=== PATIENT | female | born 1955 | race Caucasian/White ===

== ENCOUNTER → 2024-08-06 14:38 | Outpatient (REF) | payer MEDICARE, OTHER, SELFPAY ==
[2024-08-06 16:01] LABS: ALT (SGPT) 57 U/L (0-35); AST (SGOT) 64 U/L (14-36); Alkaline Phosphatase 110 U/L (38-126); Blood Urea Nitrogen 8 mg/dl (7-17); Carbon Dioxide 23 mmol/L (22-30); Chloride 102 mmol/L (98-107); Creatine Phosphokinase 53 U/L (30-135); Glucose 95 mg/dl (70-99); Iron 182 ug/dl (37-170); Sodium 139 mmol/L (135-145); Total Bilirubin 1.1 mg/dl (0.2-1.3); Total Protein 7.3 g/dl (6.3-8.2); eGFR > 60.00
[2024-08-06 16:09] LABS: % Basophils 0.6 % (0-2); % Eosinophils 0.4 % (0-6); % Immature Granulocytes 0.4 % (0-0.5); % Monocytes 6.5 % (1.7-9.3); % Neutrophils 70.1 % (42.2-75.2); Absolute Basophils 0.1 10^3/uL (0-0.2); Absolute Lymphocytes 1.9 10^3/uL (1.2-3.4); Absolute Monocytes 0.6 10^3/uL (0.1-0.6); Absolute Neutrophils 5.9 10^3/uL (1.4-6.5); Hematocrit 45.7 % (37.0-47.0); Hemoglobin 16.2 g/dL (12.0-16.0); Mean Corp Hgb Conc. 35.4 g/dL (33.0-37.0); Mean Corpuscular Hgb 36.9 pg (27.0-31.0); Mean Corpuscular Volume 104.1 fL (81.0-99.0); Mean Platelet Volume 10.4 fL (7.4-10.4); Nucleated Red Blood Cells % 0 %; Platelet Count 211 10^3/uL (130-400); Red Blood Cell Count 4.39 10^6/uL (4.20-5.40); Red Cell Dist. Width 14.6 % (11.5-14.5); White Blood Cell Count 8.5 10^3/uL (4.8-10.8)
[2024-08-06 16:10] LABS: Percent Saturation 65 % (20-50); Total Iron Binding Capacity 280 ug/dl (265-497)
[2024-08-06 16:33] LABS: TSH Reflex To Free T4 1.24 uIU/ml (0.47-4.68)
[2024-08-06 18:30] LABS: Erythrocyte Sed Rate 10 mm/hour (0-20)
[2024-08-08 15:02] LABS: Lyme Antibody Screen, EIA Negative (Negative)
== END ==
LOC: REG 14:38
PROVIDERS: ATTENDING PHYSICIAN Hospitalist
DX: R29.898 Other symptoms and signs involving the musculoskeletal system (principal); U07.1 COVID-19
CPT/HCPCS: 36415; 80053; 82550; 82728; 83540; 83550; 84443; 84466; 85025; 85652; 86140; 86618

== ENCOUNTER → 2024-08-08 10:45 | Outpatient (REF) | payer MEDICARE, OTHER, SELFPAY ==
[2024-08-08 12:42] LABS: Creatine Phosphokinase 48 U/L (30-135)
[2024-08-08 13:55] LABS: Folate 2.8 ng/ml (2.76-20); Vitamin B12 247 pg/ml (239-931)
[2024-08-08 20:23] LABS: Hepatitis B Surface Antigen Negative (Negative)
[2024-08-08 20:40] LABS: Hepatitis B Surface Antibody Negative; Hepatitis C Antibody Negative (Negative)
== END ==
LOC: REG 10:45
PROVIDERS: ATTENDING PHYSICIAN Hospitalist
DX: R79.89 Other specified abnormal findings of blood chemistry (principal); R71.8 Other abnormality of red blood cells; R29.898 Other symptoms and signs involving the musculoskeletal system; E53.8 Deficiency of other specified B group vitamins
CPT/HCPCS: 36415; 81256; 82550; 82607; 82746; 86618; 86706; 86803; 87340

== ENCOUNTER → 2024-08-13 12:19 | Outpatient (REF) | payer MEDICARE, OTHER, SELFPAY ==
[2024-08-15 17:43] LABS: Homocysteine 133 umol/L (0-15)
== END ==
LOC: REG 12:19
PROVIDERS: ATTENDING PHYSICIAN Hospitalist
DX: E53.8 Deficiency of other specified B group vitamins (principal)
CPT/HCPCS: 36415; 83090; 83921

== ENCOUNTER 2024-08-23 21:31 | Observation (INO) | payer MEDICARE, OTHER, SELFPAY ==
[2024-08-23] VITALS (7 sets, daily range): BP systolic 108–163; BP diastolic 69–109; BMI 25.2; BMI 24.8
[2024-08-23 11:58] LABS: % Basophils 0.7 % (0-2); % Eosinophils 0.3 % (0-6); % Immature Granulocytes 0.3 % (0-0.5); % Lymphocytes 19.9 % (20.5-51.1); % Monocytes 7.3 % (1.7-9.3); % Neutrophils 71.5 % (42.2-75.2); Absolute Basophils 0.1 10^3/uL (0-0.2); Absolute Lymphocytes 1.5 10^3/uL (1.2-3.4); Absolute Monocytes 0.5 10^3/uL (0.1-0.6); Absolute Neutrophils 5.3 10^3/uL (1.4-6.5); Mean Corp Hgb Conc. 35.7 g/dL (33.0-37.0); Mean Corpuscular Hgb 37.3 pg (27.0-31.0); Mean Corpuscular Volume 104.5 fL (81.0-99.0); Mean Platelet Volume 9.8 fL (7.4-10.4); Nucleated Red Blood Cells % 0 %; Platelet Count 161 10^3/uL (130-400); Red Blood Cell Count 4.02 10^6/uL (4.20-5.40); Red Cell Dist. Width 15.8 % (11.5-14.5); White Blood Cell Count 7.4 10^3/uL (4.8-10.8)
[2024-08-23 12:15] LABS: ALT (SGPT) 79 U/L (0-35); AST (SGOT) 92 U/L (14-36); Albumin 4.9 g/dl (3.5-5.0); Alkaline Phosphatase 135 U/L (38-126); Blood Urea Nitrogen 7 mg/dl (7-17); Calcium 9.8 mg/dl (8.4-10.2); Carbon Dioxide 21 mmol/L (22-30); Chloride 106 mmol/L (98-107); Glucose 100 mg/dl (70-99); Potassium 4.3 mmol/L (3.5-5.1); Sodium 140 mmol/L (135-145); Total Bilirubin 0.8 mg/dl (0.2-1.3); eGFR > 60.00
--- NOTE | 2024-08-23 14:04 | ED.GENMED ---
History of Present Illness
General
Chief Complaint: Weakness
Source: patient
Exam Limitations: none
Time Seen by Provider: 08/23/24 13:39
Nursing documentation reviewed up to this point in time: agreed with
History of Present Illness
History of Present Illness:
Patient presents to ED secondary to worsening lower leg weakness, causing her to have difficult time ambulating over the past 3 weeks. Denies previous history of similar symptoms. Denies fever or chills. Denies back pain. Denies urinary or bowel
incontinence. Denies loss of sensation. Patient has been utilizing cane for support over the past 1 week. Denies recent illness. Denies recent change in medications or diet.
Past History
Past History
ED Past Medical History: Other (Breast cancer, herniated disc, kidney stones)
ED Past Surgical History: Negative Orthopedic
Social History
Tobacco: Smoker
Alcohol: None
Drug: None
Personal:
Living: with family
Employment: Employed
Family History
Family History: Other
Review of Systems
Review of Systems
Allergies reviewed?: Yes
All Other Systems: ROS reviewed and negative except as documented in HPI and ROS
Constitutional: Reports no symptoms
EENT: Reports no symptoms
Respiratory: Reports no symptoms
Cardiac: Reports no symptoms
ABD/GI: Reports no symptoms
Musculoskeletal: Reports no symptoms
Skin: Reports no symptoms
Neurological: Reports weakness (leg weakness)
Phy Exam
Physical Exam
Physical Exam:
Physical Exam
General: mild distress, not acutely ill. afebrile
Head: nc/at. eomi
Neck: supple. no meningeal signs.
Heart: s1/s2 regular rate and rhythm, no murmur. equal radial pulses.
Lungs: no acute respiratory distress. clear bilaterally
Abdomen: normal bowel sounds. not tender.
Neuro: alert and oriented. no focal sensory deficit. LE b/l motor, 2/5 weakness. patellar reflex intact
Skin: no rash
Psychiatric: well kept. interactive and cooperative
Extremities: no edema. no calf tenderness.
Course
Orders/Labs/Results
Orders:
Orders
08/23/24 Breakfast
Regular
At Your Request: Full Participation
08/23/24 11:49
Complete Blood Count/With Diff Urgent
Comprehensive Metabolic Panel Urgent
Vitamin B12 Urgent
Comment: ADD ON
08/23/24 14:03
NEUROLOGY CONSULT Urgent
Consulting Provider: Tab Valencia
Was physician already notified: Yes
Reason for consult: LE weakness
08/23/24 15:39
MR Cervical Spine Without & W Urgent
Comment:
Reason For Exam: LE weakness
Recent pill cam endoscopy?: No
MR Thoracic Spine W/o & With Urgent
Comment:
Reason For Exam: LE weakness
Recent pill cam endoscopy?: No
08/23/24 16:31
Lorazepam [Ativan] 1 mg IV NOW STA
08/23/24 21:17
Admit/Transfer Patient As Directed
Co-Sign Provider:
Level of Care: Observation services
Assign to:: Telemetry
Physician / Group: Romain
Diagnosis: LE Weakness / Neuropathy
Reason for Telemetry: CVA/TIA
Date to Stop Telemetry: 08/26/24
Time to Stop Telemetry: 11:00
PRN Pain Medication Management As Directed
May give lesser potent ordered pain med per pt: Yes
preference::
Protocol:: Medication orders for pain may be administered in a
manner that supports deferring to patient preference
when the pt is:
- Requesting an ordered lesser potent pain medication.
Least to most potent pain medications are defined
as: acetaminophen < NSAID < tramadol < opioids
(morphine, oxycodone, hydromorphone).
- Requesting a lesser dose of the same medication IF
ORDERED.
- Requesting a less intrusive route of administration
if both routes are prescribed by the provider (PO <
IV).
08/23/24 21:19
Code Status As Directed
Resuscitation Status: Full Code
08/23/24 22:23
0.9% Sodium Chloride [Nss (Preservative Free)] See Protocol IV PRN PRN
Acetaminophen [Tylenol] 650 mg PO Q4HPRN PRN
FOLic ACID [Folvite] 1 mg 0.9% Sodium Chloride 50 ml [Nss] 50 ml IV DAILYPRN
Lorazepam [Ativan] 1 mg IV Q1HPRN PRN
Lorazepam [Ativan] 1 mg PO Q2HPRN PRN
Lorazepam [Ativan] 2 mg IV Q1HPRN PRN
08/23/24 22:23
Case Management Consult Once
Case Management Consult: Other
Comment: Substance abuse counseling
DIETARY CONSULT Routine
Reason for Consult: Nutrition support, possible refeeding guidelines
TSH Reflex To Free T4 Routine
Urine Drug Abuse Screen Routine
Date Specimen was Collected: 08/24/24
Time Specimen was Collected: 10:29
Activity As Directed
Activity Level: Ambulate
With Assistance
Bladder Scan As Directed
Follow Bladder Retention/Intermittent Cath Algorithm?: Yes
PRN if no void in __ hours: 6
Frequency: Per Retention Algorithm
If Bladder Scan Result >: 400
then:: Straight cath
I/O [Intake/ Output] As Directed
Frequency: Per unit guidelines
MSAS SCORE As Directed
MSAS Score 0-4: Repeat MSAS every 2 hours until 0-4 for three consecutive assessments, then every 4 hours x 48
hours.
MSAS Score 5-7: For MILD withdrawl symptoms. Repeat MSAS and RASS every 2 hours
MSAS Score 8-11: For MODERATE withdrawal symptoms. Repeat MSAS and RASS every 1 hour. Consider ICU or IMU
level of care.
MSAS Score > 11: For SEVERE withdrawal symptoms. Repeat MSAS and RASS every 1 hour. Notify provider, consider
ICU level of care.
MSAS Additional Instructions: If no improvement or no decrease in score from severe to moderate within 12
hours, consult psychiatry
MSAS Notify Provider: Notify provider if patient requires more than 10 mg of Lorazepam in eight hour period.
Neurological Checks As Directed
Frequency: q4h
Orthostatic Vital Signs As Directed
Orthostatic VS Frequency: BID
Straight Cath As Directed
Frequency: Per Retention Algorithm
Additional Instructions: straight cath as needed per acute urinary retention algorithm for 24 hrs
Additional Instructions: for bladder scan greater than 400 mL
Vital Signs As Directed
Frequency: Per unit guidelines
Ot Eval And Treat Routine
PT Consult [Pt Eval And Treat] Routine
Activity Level: Ambulate
With Assistance
DX Deep Vein Thrombosis Video Routine
08/24/24 00:00
Thiamine Injection 200 mg IV Q8
08/24/24 07:33
Complete Blood Count/No Diff IN AM
08/24/24 08:00
FOLic ACID [Folvite] 1 mg PO DAILY
08/24/24 18:00
Enoxaparin Sodium [Lovenox] 40 mg SC QPM
08/26/24 11:00
DC Protocol for Telemetry ONCE
08/27/24 08:00
Thiamine HCl [Vitamin B1] 100 mg PO BID
Abnormal Lab Results
08/23/24
11:49
RBC 4.02 L 10^6/uL
(4.20-5.40)
MCV 104.5 H fL
(81.0-99.0)
MCH 37.3 H pg
(27.0-31.0)
RDW 15.8 H %
(11.5-14.5)
Lymphocytes % 19.9 L %
(20.5-51.1)
Carbon Dioxide 21 L mmol/L
(22-30)
Creatinine 0.5 L mg/dL
(0.6-1.0)
Glucose 100 H mg/dl
(70-99)
AST 92 H U/L
(14-36)
ALT 79 H U/L
(0-35)
Alkaline Phosphatase 135 H U/L
(38-126)
Vitamin B12 214 L pg/ml
(239-931)
08/23/24 11:49
08/23/24 11:49
Vital Signs
Initial and Last Documented VS:
Initial Vital Signs
Temp Pulse Resp BP Pulse Ox
98.5 F 110 18 163/109 98
08/23/24 11:37 08/23/24 11:37 08/23/24 11:37 08/23/24 11:37 08/23/24 11:37
Last Documented Vital Signs
Temp Pulse Resp BP Pulse Ox
98.3 F 105 18 140/87 97
08/25/24 11:00 08/25/24 11:00 08/25/24 11:00 08/25/24 11:00 08/25/24 11:00
MDM/Problems Addressed
MDM/Problems Addressed:
Profound LE weakness noted - concerning for primary spinal lesion vs Guillain-Chacko� syndrome vs less likely central origin. Will consult neurology for an evaluation.
Pt evaluated by , neurology. Recommends urgent MRI cervical/thoracic spine only
MRI C/T spine: no acute findings.
Dr. Valencia, neurology, recommends admission to the hospital for further evaluation and treatment, including obtaining MRI lumbar spine as an inpatient, as well as checking B12 level.
*Critical Care Note
Total Time (30-74mins, 75-104mins- exclusive of procedures): Not Applicable
ED Attending Note
-
Portions of this chart may have been created with voice recognition software.� Occasional wrong word or��sound alike� substitutions may have occurred due to the inherent limitations of voice recognition software.
Discharge Plan
Departure
Patient Disposition: Admit
Date of Disposition: 08/23/24
Time of Disposition: 20:31
Presentation/result/management discussed w/ accepting MD/DO: Hospitalist
Discharge Problem:
Leg weakness, bilateral
Interventions
Interventions:
*Risk Screen - Suicide Last Done: 08/23/24 22:46
*General Assessment Last Done: 08/23/24 11:37
*Neglect/Abuse Screening Last Done: 08/23/24 11:37
ED- Fall Risk Assessment Last Done: 08/23/24 14:12
*ED COVID-19 Vaccine History Last Done: 08/23/24 22:46
*Nursing Disposition Last Done: 08/23/24 22:22
ED- Cardiac Assessment Last Done: 08/23/24 22:00
ED- Neurological Assessment Last Done: 08/23/24 21:24
ED- Pulmonary Assessment Last Done: 08/23/24 14:12
Discharge Date and Time
Discharge Date/Time: 08/23/24 22:22
--- NOTE | 2024-08-23 15:20 | EDRN ---
neurology currently at the pts bedside speaking with the pt
[2024-08-23] MEDS: ATIVAN 1 MG IV (16:37)
--- NOTE | 2024-08-23 16:55 | CON.NEURO4 ---
Addendum entered and electronically signed by Tab Valencia MD 08/24/24 19:21:
h/o alcohol use: Wine... possible alcohol related myopathy vs neuropathy
PLAN: Thiamin
B12/B1 level
MVI
MRI L-Spine
PT/OT
Original Note:
Consultation - Neurology 4
-
CONSULTING PHYSICIAN: Tab Valencia MD
REFERRING PHYSICIAN: Hospitalist
DICTATED BY: Tab Valencia MD
DATE/TIME OF REQUEST: August 23, 2024
DATE/TIME OF CONSULTATION: 08/23/2024
Reason for Consultation: Weakness
History of Present Illness:
This is a 69year old right) handed female) who has presented to the hospital with (chief complaint) weakness. She gives a history of breast cancer COVID-19 kidney stones diverticulitis who had been in usual state of health till late July. At
that time she noted weakness in her legs difficulty walking and going up and down steps. The symptoms continue to progressively worsen and the most concerning event was when her legs apparently froze while trying to go up the steps at her
daughter's place in [facility]. Over the next week her weakness continued to worsen and she needed to use a cane. This morning she was unable to stand and walk and had to be brought to the emergency room
She denies any neck or back injuries. No neck or back pain. No pain rating from the neck into the arms and there is no pain radiating from the low back into the legs. No incontinence
However she does get the electrical sensation running up and down her back from the top of her shoulders to the lower back
No incontinence
Past Medical History: As above
Surgical History: Mastectomy
Family History: Noncontributory
Social History: lives at home with her
Allergies: See addendum
Home Medications: See addendum
Review of Symptoms:
Patient denies any fever, headache, chest pain, shortness of breath, GI or symptoms.
�Per the HPI.�All systems are reviewed negative except above.
Vital Signs:
The patient has a
Physical Exam:
The patient is afebrile, heart sounds S1 and S2 are (regular , and chest is clear to auscultation bilaterally.
- If not clear, describe.
Neurologic Examination:
The patient is awake, alert and oriented x 3. She is able to follow commands and answer questions appropriately. There is no aphasia or dysarthria.
On cranial nerve assessment, pupils are 3 mm bilateral, round and reactive to light and accommodation. Visual nathan are full. Extraocular movements are intact. Facial sensations are intact and bilaterally symmetrical, there is no facial asymmetry.
Hearing is intact bilaterally to normal conversation volume. Tongue palate and uvula are midline. Sternocleidomastoid strengths are full bilaterally.
Motor strengths are 4/5 bilateral upper extremities. Lower extremity strength is 1/5. There is no drift or involuntary movement noted.
Deep tendon reflexes are 4+ bilateral upper and lower extremities and Babinski is present bilaterally. With clonus
Sensations of pain, touch, temperature and vibration are impaired. T4 sensory level with spine tenderness
Coordination is intact by finger to nose bilaterally. Romberg's and gait cannot be tested
Patient is unable to stand or walk
Lab Results: See addendum
Neuro Imaging: Pending
Impression: Ms.) LINSEY CALZADA is a 69 year old F who has presented to the hospital with h/o breast cancer in remission with symptoms/chief complaint of Progressive difficulty standing and walking
Differentials for the patient's presentation include:
1. Cervical myelopathy
2. Thoracic myelopathy
Recommendations:
1. MRI C-spine with and without contrast
2. MRI thoracic spine with and without contrast
3. Bedrest
Discussed patient care with: ED
Medications
-
Home Medications
�Medication �Instructions �Recorded
folic acid 1 mg tablet 1 mg PO DAILY 08/23/24
Vital Signs and Labs
-
Vital Signs and Labs:
Vital Signs
Temp Pulse Resp BP Pulse Ox
36.9 C 105 20 115/87 96
08/23/24 14:12 08/23/24 15:31 08/23/24 15:31 08/23/24 15:31 08/23/24 15:31
Lab Results
08/23/24 11:49
08/23/24 11:49
Sodium 140 mmol/L (135-145) 08/23/24 11:49
Potassium 4.3 mmol/L (3.5-5.1) 08/23/24 11:49
BUN 7 mg/dl (7-17) 08/23/24 11:49
Glucose 100 mg/dl (70-99) H 08/23/24 11:49
Calcium 9.8 mg/dl (8.4-10.2) 08/23/24 11:49
Allergies
-
Allergies
Allergy/AdvReac Type Severity Reaction Status Date / Time
Cephalosporins Allergy Unknown Verified 08/23/24 11:37
morphine Allergy Unknown Verified 08/23/24 11:37
penicillin G Allergy Unknown Verified 08/23/24 11:37
Penicillins Allergy Unknown Verified 08/23/24 11:37
Sulfa (Sulfonamide Allergy pt denies Verified 08/23/24 11:37
Antibiotics) this
allergy
sulfisoxazole Allergy Unknown Verified 08/23/24 11:37
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
[2024-08-23 22:18] LABS: Vitamin B12 214 pg/ml (239-931)
[2024-08-23] MEDS: THIAMINE INJECTION 200 MG IV (23:13)
[2024-08-24] VITALS (8 sets, daily range): BP systolic 105–134; BP diastolic 58–81; PULSE 85–88; O2SAT 96; BMI 24.7
[2024-08-24] MEDS: FOLVITE 1 MG PO (07:44)
[2024-08-24] MEDS: THIAMINE INJECTION 200 MG IV ×3 (07:44→23:58)
[2024-08-24 08:17] LABS: Hematocrit 37.4 % (37.0-47.0); Hemoglobin 13.2 g/dL (12.0-16.0); Mean Corp Hgb Conc. 35.3 g/dL (33.0-37.0); Mean Corpuscular Hgb 37.3 pg (27.0-31.0); Mean Corpuscular Volume 105.6 fL (81.0-99.0); Mean Platelet Volume 10.1 fL (7.4-10.4); Platelet Count 147 10^3/uL (130-400); Red Blood Cell Count 3.54 10^6/uL (4.20-5.40); Red Cell Dist. Width 15.8 % (11.5-14.5); White Blood Cell Count 4.8 10^3/uL (4.8-10.8)
[2024-08-24 08:48] LABS: ALT (SGPT) 54 U/L (0-35); AST (SGOT) 52 U/L (14-36); Albumin 3.6 g/dl (3.5-5.0); Alkaline Phosphatase 88 U/L (38-126); Blood Urea Nitrogen 10 mg/dl (7-17); Calcium 9.1 mg/dl (8.4-10.2); Carbon Dioxide 25 mmol/L (22-30); Chloride 106 mmol/L (98-107); Direct Bilirubin 0.3 mg/dl (0.0-0.4); Estimated Creatinine Clearance 62 ml/min; Glucose 86 mg/dl (70-99); Sodium 136 mmol/L (135-145); Total Bilirubin 1.3 mg/dl (0.2-1.3); Total Protein 5.8 g/dl (6.3-8.2); eGFR > 60.00
[2024-08-24 09:12] LABS: TSH Reflex To Free T4 3.75 uIU/ml (0.47-4.68)
--- NOTE | 2024-08-24 11:10 | W.PN.HOSP.TC ---
Today's Communication/Plan
-
PT/OT
Continue vitamin repletion
Assessment / Plan
Assessment / Plan
Gen-AAOx3, NAD
HEENT-NC, AT, anicteric, clear oral mm
Neck-supple
CV-reg, no M, +S1/S2
Lungs-clear B/L
Abd-soft, NT, ND
Ext-no edema
Musculoskeletal-no cyanosis, clubbing
Skin-warm and dry
Neuro-symmetrical bilateral lower extremity weakness, cannot lift feet off the bed
Psych-calm, cooperative
Progressive bilateral lower extremity weakness -patient claims symptoms started 3 weeks ago. Cervical and thoracic spine MRIs without obvious explanation. Neurology consulted.
PT/OT. Rule out alcoholic neuropathy versus other causes.
Alcohol use disorder - counseled on need to abstain. Continue alcohol withdrawal protocol, thiamine, folic acid.
Folate, B12 deficiency -continue repletion.
Elevated iron saturation -ferritin 899. Iron saturation 65%. Followed by hematology, Dr. Boyd. 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
Full code
Anticipated Discharge: > 48 hours
Subjective/Interval History
-
Date of Service: August 24, 2024
Patient seen and examined. Still with lower extremity weakness.
Objective Data
-
Labs:
Laboratory Results
08/24/24
07:33
WBC 4.8
Hgb 13.2
Hct 37.4
Plt Count 147
Sodium 136
Potassium 4.0
Chloride 106
Carbon Dioxide 25
BUN 10
Creatinine 0.6
Glucose 86
Calcium 9.1
Total Bilirubin 1.3
AST 52 H
ALT 54 H
Alkaline Phosphatase 88
Vital Signs:
Vital Signs
Temp Pulse Resp BP Pulse Ox
98.5 F 76 16 106/58 100
08/24/24 07:00 08/24/24 07:00 08/24/24 07:00 08/24/24 07:00 08/24/24 07:00
Review of Systems
-
History Source: Patient
All other systems: Reviewed and negative
[2024-08-24 11:16] LABS: Amphetamines Negative (Negative); Barbiturates Negative (Negative); Benzodiazepines Positive (Negative); Buprenorphine Negative (Negative); Cocaine Negative (Negative); Marijuana Negative (Negative); Methadone Negative (Negative); Methamphetamines Negative (Negative); Opiates Negative (Negative); Phencyclidine Negative (Negative); Tricyclic Antidepressants Negative (Negative)
[2024-08-24 11:34] LABS: Fentanyl, Urine Negative (Negative)
[2024-08-24] MEDS: VITAMIN B-12 1000 MCG PO (12:16)
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
[2024-08-24] MEDS: LOVENOX 40 MG SC (17:14)
[2024-08-24] MEDS: THERAGRAN 1 TABLET PO (17:14)
[2024-08-24 17:23] LABS: Vitamin B12 220 pg/ml (239-931)
--- NOTE | 2024-08-24 20:30 | W.PN.NEURO.1 ---
Today's Communication / Plan
-
PT/OT
Referral to Orthopedics/Neurosurgery
Neuro Assessment/Plan
Assessment
69 yr. old lady with h/o new onset of leg weakness bilaterally secondary to L5-S1 disc herniation
Plan
Bed rest
Referral to Orthopedics/Neurosurgery for lumbar discectomy
Subjective/Objective
Subjective Data
Date of Service: August 24, 2024
Pat continue to have leg weakness. No numbness or LBP
Objective Data
Vital Signs
Temp Pulse Resp BP Pulse Ox
36.9 C 88 20 126/64 97
08/24/24 19:45 08/24/24 19:45 08/24/24 19:45 08/24/24 19:45 08/24/24 19:45
Lab Results
08/24/24 07:33
08/24/24 07:33
Sodium 136 mmol/L (135-145) 08/24/24 07:33
Potassium 4.0 mmol/L (3.5-5.1) 08/24/24 07:33
BUN 10 mg/dl (7-17) 08/24/24 07:33
Glucose 86 mg/dl (70-99) 08/24/24 07:33
Calcium 9.1 mg/dl (8.4-10.2) 08/24/24 07:33
Vitamin B12 220 pg/ml (239-931) L 08/24/24 16:06
Ur Buprenorphine Negative (Negative) 08/24/24 10:31
Patient Allergies
Cephalosporins Allergy (Verified 08/23/24 11:37)
Unknown
morphine Allergy (Verified 08/23/24 11:37)
Unknown
penicillin G Allergy (Verified 08/23/24 11:37)
Unknown
Penicillins Allergy (Verified 08/23/24 11:37)
Unknown
Sulfa (Sulfonamide Antibiotics) Allergy (Verified 08/23/24 11:37)
pt denies this allergy
sulfisoxazole Allergy (Verified 08/23/24 11:37)
Unknown
Physical Exam
-
General: Well Developed, Well Nourished and No Apparent Distress
Eyes: OU Absent Papilledema
HEENT: Normocephalic and Atraumatic
Neck: No Bruits Bilaterally
Respiratory: Clear to Auscultation
Cardiac: Regular Rhythm and No Murmur
Extended Neurological Exam
Mood & Affect: Mood Unremarkable and Affect Unremarkable
Attention Span & Concentration: Awake, Alert, Interactive and No Difficulty with 2 Step Request
Memory: Unremarkable
Tremor: Hand Tremor Absent and Head Tremor Absent
Speech: Quality Unremarkable and Quantity Unremarkable
Cranial Nerve II: Left Eye: Pupillary Reactivity Unremarkable, Pupillary Size Unremarkable and Visual [place] Grossly Intact
Cranial Nerve II: Right Eye: Pupillary Reactivity Unremarkable, Pupillary Size Unremarkable and Visual [place] Grossly Intact
Cranial Nerves III, IV, : Extraocular Movement: Extraocular Movement Full in all Directions
Cranial Nerve V: Facial Sensation: Facial Sensation Unremarkable to Cold and Intact to Light Touch
Cranial Nerve VII: Facial Symmetry: Normal Facial Symmetry
Cranial Nerve VIII: Hearing: Unremarkable Hearing to Normal Conversational Volume
Cranial Nerves IX, X: Palate Movement: Palate Elevation Symmetric
Cranial Nerve XI: Shoulder Shrug: Unremarkable
Cranial Nerve XII: Tongue Protusion: Midline
Muscle Strength, Overall: Full in Upper Extremities and Other (Lower extremity weakness)
Muscle Bulk & Tone: Bulk Unremarkable and Tone Unremarkable
Pronator Drift: No Drift in Upper Extremities
Deep Tendon Reflexes: 3+
Cold Sensation: Reduced Mildly Distally
Vibration Sensation: Reduced Mildly Distally
Coordination: [id number] Testing Unremarkable
Babinski Sign: Absent Bilaterally
Gait & Station: Up from Lying with Difficulty
Data Reviewed
-
MRI Lumbar Spine: Image Reviewed (L5-S1 Disc herniation. There is degenerative disc disease at L5-S1 with mild loss of disc stature, Modic type I (fibrotic) degenerative changes in the adjacent endplates and moderate broad-based posterior
bulging/herniation of the intervertebral disc associated with mild broad-based impingement upon)
[2024-08-24] MEDS: PEPCID 20 MG PO (22:07)
[2024-08-24] MEDS: SOLU-MEDROL PF 250 MG IV (22:08)
[2024-08-25 03:16] VITALS: BP 110/73
[2024-08-25 07:00] VITALS: BP 126/78
[2024-08-25] MEDS: SOLU-MEDROL PF 250 MG IV (08:29)
[2024-08-25] MEDS: FOLVITE 1 MG PO (08:29)
[2024-08-25] MEDS: VITAMIN B-12 1000 MCG PO (08:31)
[2024-08-25] MEDS: THERAGRAN 1 TABLET PO (08:31)
[2024-08-25] MEDS: THIAMINE INJECTION 200 MG IV (09:23)
--- NOTE | 2024-08-25 10:25 | W.PN.HOSP.TC ---
Today's Communication/Plan
-
Discharge
Assessment / Plan
Assessment / Plan
Gen-AAOx3, NAD
HEENT-NC, AT, anicteric, clear oral mm
Neck-supple
CV-reg, no M, +S1/S2
Lungs-clear B/L
Abd-soft, NT, ND
Ext-no edema
Musculoskeletal-no cyanosis, clubbing
Skin-warm and dry
Neuro-symmetrical bilateral lower extremity weakness, cannot lift feet off the bed
Psych-calm, cooperative
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 Rule out myopathy as a component. Needs outpatient follow-up with neurology in the clinic. Cervical, thoracic, lumbar spine MRI results noted. There is a
disc herniation in the lumbar spine but I spoke with Dr. Spencer of neurosurgery and she feels that this does not explain her lower extremity weakness.
Cleared for home health by PT/OT.
Alcohol use disorder -alcohol abstinence strongly encouraged in light of her presentation with lower extremity weakness. Patient agrees.
Folate, B12 deficiency -continue repletion.
Heterozygous hemochromatosis -ferritin 899. Iron saturation 65%. Followed by hematology, Dr. Boyd. 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
Full code
Dispo - discharge today. Outpatient follow-up.
35 minutes spent in discharge process.
Anticipated Discharge: Today
Subjective/Interval History
-
Date of Service: August 25, 2024
Patient seen and examined. No complaints other than arm burning with IV thiamine.
Objective Data
-
Vital Signs:
Vital Signs
Temp Pulse Resp BP Pulse Ox
98.5 F 91 18 126/78 95
08/25/24 07:00 08/25/24 07:00 08/25/24 07:00 08/25/24 07:00 08/25/24 07:00
I&O
08/24/24 08/25/24 08/26/24
06:59 06:59 06:59
Intake Total 1979
Balance 1979
Review of Systems
-
History Source: Patient
All other systems: Reviewed and negative
--- NOTE | 2024-08-25 10:29 | W.DS.TRANS ---
DC Summary - [employer]
-
Discharge Instructions:
Discharge Diagnosis/Procedures Alcohol induced neuropathy, ambulatory
dysfunction, vitamin deficiency
Diet Regular
Activity As tolerated
Driving Restrictions Not until seen by your Dr
Bathing Restrictions None
Other Services VN,PT
Instructions:
Stand-Alone Forms:
Changes to Home Medications: No
Discharge Medications:
DC Medications w/original date entered in [employer]
cyanocobalamin (vitamin B-12) 1,000 mcg tablet 1,000 mcg PO DAILY #30 tabs 08/25/24
folic acid 1 mg tablet 1 mg PO DAILY Supplement #30 tabs 08/25/24
multivitamin with folic acid 400 mcg tablet (Tab-A-Arcelia) 1 tab PO DAILY #0 tabs 08/25/24
thiamine HCl (vitamin B1) 100 mg tablet 100 mg PO BID #60 tabs 08/25/24
Home Medication Changes
Pending Results: No
[2024-08-25 11:00] VITALS: BP 140/87
--- NOTE | 2024-08-25 11:08 | CM ---
met with patient at bedside.patient is stable for dc home today with dhvn for vn and home pt.patient signed obs letter.Plan :home with [facility].
== END 2024-08-25 12:19 | disposition home health service (06) ==
LOC: 3 WEST ACU 21:31
PROVIDERS: Emergency Medicine; ADMITTING PHYSICIAN Hospitalist; ATTENDING PHYSICIAN Hospitalist; CONSULT PHYSICIAN Psychiatry & Neurology Neurology; EMERGENCY PHYSICIAN Emergency Medicine; FAMILY PHYSICIAN Hospitalist
DX: G62.1 Alcoholic polyneuropathy (principal); R53.1 Weakness; E53.8 Deficiency of other specified B group vitamins; E83.119 Hemochromatosis, unspecified; M51.27 Other intervertebral disc displacement, lumbosacral region; M51.26 Other intervertebral disc displacement, lumbar region; F17.210 Nicotine dependence, cigarettes, uncomplicated; R26.2 Difficulty in walking, not elsewhere classified; H40.9 Unspecified glaucoma; F41.9 Anxiety disorder, unspecified; R29.818 Other symptoms and signs involving the nervous system; F10.10 Alcohol abuse, uncomplicated; R79.89 Other specified abnormal findings of blood chemistry; M51.379 Other intervertebral disc degeneration, lumbosacral region without mention of lumbar back pain or lower extremity pain; M48.07 Spinal stenosis, lumbosacral region; Z88.1 Allergy status to other antibiotic agents; Z88.5 Allergy status to narcotic agent; Z85.3 Personal history of malignant neoplasm of breast; Z87.442 Personal history of urinary calculi; Z88.0 Allergy status to penicillin; Z88.2 Allergy status to sulfonamides
CPT/HCPCS: 72148; 72156; 72157; 80053; 80306; 80307; 82248; 82607; 84425; 84443; 85025; 85027; 96374; 97162; 97166; 99285; 99406; A9575; G0378

== ENCOUNTER → 2024-10-01 07:29 | Outpatient (REF) | payer MEDICARE, OTHER, SELFPAY | LOC: RAD 07:29 | PROVIDERS: ATTENDING PHYSICIAN Hospitalist | DX: R79.89 Other specified abnormal findings of blood chemistry (principal) | CPT/HCPCS: 76700 ==

== ENCOUNTER 2024-10-01 08:27 | Outpatient (RCR) | payer MEDICARE, OTHER, SELFPAY ==
[2024-10-01 08:53] LABS: % Basophils 0.4 % (0-2); % Eosinophils 2.3 % (0-6); % Immature Granulocytes 0.4 % (0-0.5); % Lymphocytes 23.3 % (20.5-51.1); % Monocytes 9.4 % (1.7-9.3); % Neutrophils 64.2 % (42.2-75.2); Absolute Eosinophils 0.1 10^3/uL (0-0.7); Absolute Lymphocytes 1.2 10^3/uL (1.2-3.4); Absolute Monocytes 0.5 10^3/uL (0.1-0.6); Absolute Neutrophils 3.4 10^3/uL (1.4-6.5); Hematocrit 45.8 % (37.0-47.0); Hemoglobin 15.7 g/dL (12.0-16.0); Mean Corp Hgb Conc. 34.3 g/dL (33.0-37.0); Mean Corpuscular Hgb 36.8 pg (27.0-31.0); Mean Corpuscular Volume 107.3 fL (81.0-99.0); Mean Platelet Volume 10.1 fL (7.4-10.4); Platelet Count 145 10^3/uL (130-400); Red Blood Cell Count 4.27 10^6/uL (4.20-5.40); Red Cell Dist. Width 14.6 % (11.5-14.5); White Blood Cell Count 5.3 10^3/uL (4.8-10.8)
[2024-10-01 09:30] VITALS: BP 135/82
[2024-10-01 10:10] VITALS: BP 119/69
[2024-10-01 10:15] VITALS: BP 104/78; BP 89/61
[2024-10-01 10:30] VITALS: BP 130/92
--- NOTE | 2024-10-01 15:22 | PTCARENOTE ---
First time client presented for first time therapeutic phlebotomy. Phlebotomy completed via 20gauge protective catheter in right basilic vein drawing 50 lab tubes. Water given. Client became slightly light headed at time of discharge jabari standing.
Hr 116 b/p 104/78 at that time. Client instructed to sit back down and drink more fluids. Bp and heartrate checked several times until stable with no dizziness at 1030. Discharged with HR of 104 and BP 130/92. discharge instructions given.
== END 2024-10-02 10:58 | disposition home or self-care (01) ==
LOC: OID 08:27
PROVIDERS: ATTENDING PHYSICIAN Internal Medicine Hematology & Oncology; FAMILY PHYSICIAN Hospitalist
DX: D45 Polycythemia vera (principal)
CPT/HCPCS: 36415; 85025; 99195

== ENCOUNTER → 2024-10-25 07:19 | Outpatient (REF) | payer MEDICARE, OTHER, SELFPAY | LOC: MRI 3T 07:19 | PROVIDERS: ATTENDING PHYSICIAN Hospitalist | DX: R26.89 Other abnormalities of gait and mobility (principal); R29.6 Repeated falls | CPT/HCPCS: 70544; 70551 ==

== ENCOUNTER 2024-11-01 10:40 | Outpatient (RCR) | payer MEDICARE, OTHER, SELFPAY ==
[2024-10-09 10:52] LABS: % Basophils 0.7 % (0-2); % Eosinophils 3.3 % (0-6); % Immature Granulocytes 0.5 % (0-0.5); % Lymphocytes 41.6 % (20.5-51.1); % Monocytes 6.9 % (1.7-9.3); Absolute Eosinophils 0.1 10^3/uL (0-0.7); Absolute Lymphocytes 1.8 10^3/uL (1.2-3.4); Absolute Monocytes 0.3 10^3/uL (0.1-0.6); Hematocrit 44.9 % (37.0-47.0); Hemoglobin 15.3 g/dL (12.0-16.0); Mean Corp Hgb Conc. 34.1 g/dL (33.0-37.0); Mean Corpuscular Hgb 35.7 pg (27.0-31.0); Mean Corpuscular Volume 104.9 fL (81.0-99.0); Mean Platelet Volume 9.5 fL (7.4-10.4); Platelet Count 258 10^3/uL (130-400); Red Blood Cell Count 4.28 10^6/uL (4.20-5.40); Red Cell Dist. Width 14.4 % (11.5-14.5); White Blood Cell Count 4.2 10^3/uL (4.8-10.8)
[2024-10-09 10:57] VITALS: BP 120/77
[2024-10-09 11:45] VITALS: BP 129/84
[2024-10-09 11:50] VITALS: BP 125/88
[2024-10-09 11:55] VITALS: BP 130/86
[2024-10-16 10:50] VITALS: BP 125/83
[2024-10-16 11:36] LABS: % Basophils 0.6 % (0-2); % Eosinophils 1.3 % (0-6); % Immature Granulocytes 0.4 % (0-0.5); % Lymphocytes 25.6 % (20.5-51.1); % Monocytes 7.9 % (1.7-9.3); % Neutrophils 64.2 % (42.2-75.2); Absolute Eosinophils 0.1 10^3/uL (0-0.7); Absolute Lymphocytes 1.4 10^3/uL (1.2-3.4); Absolute Monocytes 0.4 10^3/uL (0.1-0.6); Absolute Neutrophils 3.5 10^3/uL (1.4-6.5); Hematocrit 37.5 % (37.0-47.0); Hemoglobin 12.7 g/dL (12.0-16.0); Mean Corp Hgb Conc. 33.9 g/dL (33.0-37.0); Mean Corpuscular Hgb 36.2 pg (27.0-31.0); Mean Corpuscular Volume 106.8 fL (81.0-99.0); Mean Platelet Volume 9.8 fL (7.4-10.4); Platelet Count 212 10^3/uL (130-400); Red Blood Cell Count 3.51 10^6/uL (4.20-5.40); Red Cell Dist. Width 14.3 % (11.5-14.5); White Blood Cell Count 5.4 10^3/uL (4.8-10.8)
[2024-10-16 12:20] VITALS: BP 107/76
[2024-10-16 12:25] VITALS: BP 118/83
[2024-10-16 12:30] VITALS: BP 100/75
[2024-10-16 12:40] VITALS: BP 107/81
[2024-10-16 13:07] VITALS: BP 109/76
[2024-10-23] VITALS (7 sets, daily range): BP systolic 89–120; BP diastolic 56–71
[2024-10-23 11:20] LABS: % Basophils 0.6 % (0-2); % Eosinophils 1.9 % (0-6); % Immature Granulocytes 0.2 % (0-0.5); % Lymphocytes 22.6 % (20.5-51.1); % Neutrophils 67.7 % (42.2-75.2); Absolute Eosinophils 0.1 10^3/uL (0-0.7); Absolute Lymphocytes 1.2 10^3/uL (1.2-3.4); Absolute Monocytes 0.4 10^3/uL (0.1-0.6); Absolute Neutrophils 3.5 10^3/uL (1.4-6.5); Hematocrit 35.9 % (37.0-47.0); Hemoglobin 11.8 g/dL (12.0-16.0); Mean Corp Hgb Conc. 32.9 g/dL (33.0-37.0); Mean Corpuscular Hgb 35.3 pg (27.0-31.0); Mean Corpuscular Volume 107.5 fL (81.0-99.0); Mean Platelet Volume 9.6 fL (7.4-10.4); Platelet Count 250 10^3/uL (130-400); Red Blood Cell Count 3.34 10^6/uL (4.20-5.40); Red Cell Dist. Width 13.9 % (11.5-14.5); White Blood Cell Count 5.1 10^3/uL (4.8-10.8)
[2024-10-23 11:53] LABS: ALT (SGPT) 25 U/L (0-35); AST (SGOT) 33 U/L (14-36); Albumin 4.2 g/dl (3.5-5.0); Alkaline Phosphatase 113 U/L (38-126); Blood Urea Nitrogen 5 mg/dl (7-17); Carbon Dioxide 23 mmol/L (22-30); Chloride 103 mmol/L (98-107); Glucose 89 mg/dl (70-99); Iron 76 ug/dl (37-170); Potassium 3.8 mmol/L (3.5-5.1); Sodium 134 mmol/L (135-145); Total Bilirubin 0.6 mg/dl (0.2-1.3); Total Protein 6.3 g/dl (6.3-8.2); eGFR > 60.00
[2024-10-23 12:03] LABS: Percent Saturation 23 % (20-50); Total Iron Binding Capacity 322 ug/dl (265-497)
[2024-10-23 12:28] LABS: TSH Reflex To Free T4 1.92 uIU/ml (0.47-4.68)
[2024-10-23 14:04] LABS: INR 0.89; PT 12.5 Sec (11.4-14.6)
[2024-10-24 04:52] LABS: IgA 91 mg/dl (70-400)
[2024-10-24 17:35] LABS: Hepatitis B Surface Antigen Negative (Negative)
[2024-10-24 17:53] LABS: Hepatitis A Antibody, Total Negative (Negative); Hepatitis B Core Ab, Total Negative (Negative); Hepatitis B Surface Antibody Negative
[2024-10-25 13:17] LABS: Ceruloplasmin 29 mg/dL (16-45)
[2024-10-25 17:04] LABS: IgG Subclass 1 245 mg/dL (240-1118); IgG Subclass 2 203 mg/dL (124-549); IgG Subclass 3 33 mg/dL (21-134); IgG Subclass 4 5 mg/dL (1-123)
[2024-10-26 00:40] LABS: F-Actin Antibody IgG 2 Units (0-19); Mitochondrial M2 Ab, IgG 4.5 Units (0.0-24.9)
[2024-10-26 02:03] LABS: ANA, IgG Reflex to HEp-2 None Detected (None Detected)
[2024-10-26 07:50] LABS: Soluble Liver Antigen Ab 1.3 U (0.0-24.9)
[2024-10-27 16:50] LABS: Alpha-1-Antitrypsin 181 mg/dL (90-200)
[2024-10-31 16:55] LABS: Hemochromatosis Specimen Whole Blood
[2024-11-01] VITALS (7 sets, daily range): BP systolic 86–121; BP diastolic 58–76
[2024-11-01 11:03] LABS: % Basophils 0.2 % (0-2); % Eosinophils 3.2 % (0-6); % Immature Granulocytes 0.2 % (0-0.5); % Lymphocytes 33.6 % (20.5-51.1); % Monocytes 9.3 % (1.7-9.3); % Neutrophils 53.5 % (42.2-75.2); Absolute Eosinophils 0.1 10^3/uL (0-0.7); Absolute Lymphocytes 1.4 10^3/uL (1.2-3.4); Absolute Monocytes 0.4 10^3/uL (0.1-0.6); Absolute Neutrophils 2.2 10^3/uL (1.4-6.5); Hematocrit 37.7 % (37.0-47.0); Hemoglobin 12.4 g/dL (12.0-16.0); Mean Corp Hgb Conc. 32.9 g/dL (33.0-37.0); Mean Corpuscular Volume 103.3 fL (81.0-99.0); Mean Platelet Volume 9.9 fL (7.4-10.4); Platelet Count 267 10^3/uL (130-400); Red Blood Cell Count 3.65 10^6/uL (4.20-5.40); Red Cell Dist. Width 13.7 % (11.5-14.5); White Blood Cell Count 4.1 10^3/uL (4.8-10.8)
[2024-11-01] MEDS: NSS 500 IV (14:19)
--- NOTE | 2024-11-01 14:25 | PTCARENOTE ---
late entry: Pt with very limited and difficult vascular access; #22p iv placed right basilic x 2, able to obtain lab specimen and some 10ml tubes of blood, however iv stopped working and unable to finish phlebotomy from that iv access. #22p iv
placed right ac and able to draw tubes of blood with vacutainer as well as 10ml syringes. Pt tolerated proceedure well.
post phlebotomy lying bp at 1332 was: 100/61 hr 72, 1337 sitting was: 107/65 hr 85, 1345 standing was: 94/58, hr 112. Pt offers no complaints at this time, and is drinking her 2nd cup of water.
1400: standing bp: 101/62 hr 117
1403: sitting hr: 85
1405: standing hr 120 bp: 86/61. Pt with no dizziness or lightheadedness.
1410: TT Venita HOP SEPARATOR and notified of above and requested orders for IVF's.
1415: Orders obtained, pt updated and in agreement, will continue to monitor.
--- NOTE | 2024-11-01 14:56 | PTCARENOTE ---
pt received 300 ml nss iv and standing bp: 95/63, hr 98. Pt received the rest of 500ml nss bag of ivf before being d/c to home.
== END 2024-11-04 12:24 | disposition home or self-care (01) ==
LOC: OID 10:40
PROVIDERS: ATTENDING PHYSICIAN Internal Medicine Hematology & Oncology; OTHER PHYSICIAN Student in an Organized Health Care Education/Training Program
DX: E83.110 Hereditary hemochromatosis (principal); E83.10 Disorder of iron metabolism, unspecified; D45 Polycythemia vera
CPT/HCPCS: 36415; 80053; 81256; 82103; 82104; 82390; 82728; 82784; 82787; 83516; 83540; 83550; 84443; 85025; 85610; 86015; 86038; 86376; 86381; 86704; 86705; 86706; 86708; 86709; 87340; 96360; 99195

== ENCOUNTER 2024-12-06 10:42 | Outpatient (RCR) | payer MEDICARE, OTHER, SELFPAY ==
[2024-11-08] VITALS (10 sets, daily range): BP systolic 80–117; BP diastolic 50–72
[2024-11-08 11:49] LABS: % Basophils 0.4 % (0-2); % Eosinophils 3.9 % (0-6); % Immature Granulocytes 0.4 % (0-0.5); % Lymphocytes 40.1 % (20.5-51.1); % Neutrophils 48.2 % (42.2-75.2); Absolute Eosinophils 0.1 10^3/uL (0-0.7); Absolute Lymphocytes 1.1 10^3/uL (1.2-3.4); Absolute Monocytes 0.2 10^3/uL (0.1-0.6); Absolute Neutrophils 1.4 10^3/uL (1.4-6.5); Hematocrit 31.7 % (37.0-47.0); Hemoglobin 10.4 g/dL (12.0-16.0); Mean Corp Hgb Conc. 32.8 g/dL (33.0-37.0); Mean Corpuscular Hgb 33.3 pg (27.0-31.0); Mean Corpuscular Volume 101.6 fL (81.0-99.0); Mean Platelet Volume 9.7 fL (7.4-10.4); Platelet Count 262 10^3/uL (130-400); Red Blood Cell Count 3.12 10^6/uL (4.20-5.40); White Blood Cell Count 2.8 10^3/uL (4.8-10.8)
[2024-11-08] MEDS: NSS 500 IV ×3 (11:57→14:30)
--- NOTE | 2024-11-08 15:37 | PTCARENOTE ---
Pt received 500NSS prior to phlebotomy; however BP continued to drop 80/50's. Notified Savanna Cook NP, additional 500NSS given with little improvement. Notifed Venita Monsalve NP, another 500NSS given. Pt BP improved and patient verbalized
feeling better. Venita Monsalve also stated the order will change for hemoglobin parameter to hold< 11.
[2024-11-15] VITALS (8 sets, daily range): BP systolic 90–135; BP diastolic 64–83
[2024-11-15 11:12] LABS: % Basophils 0.3 % (0-2); % Eosinophils 2.2 % (0-6); % Immature Granulocytes 0.3 % (0-0.5); % Lymphocytes 36.7 % (20.5-51.1); % Monocytes 6.3 % (1.7-9.3); % Neutrophils 54.2 % (42.2-75.2); Absolute Eosinophils 0.1 10^3/uL (0-0.7); Absolute Lymphocytes 1.2 10^3/uL (1.2-3.4); Absolute Monocytes 0.2 10^3/uL (0.1-0.6); Absolute Neutrophils 1.7 10^3/uL (1.4-6.5); Hematocrit 34.4 % (37.0-47.0); Mean Corpuscular Hgb 32.1 pg (27.0-31.0); Mean Corpuscular Volume 100.3 fL (81.0-99.0); Mean Platelet Volume 9.2 fL (7.4-10.4); Platelet Count 248 10^3/uL (130-400); Red Blood Cell Count 3.43 10^6/uL (4.20-5.40); Red Cell Dist. Width 14.8 % (11.5-14.5); White Blood Cell Count 3.2 10^3/uL (4.8-10.8)
[2024-11-15] MEDS: NSS 1000 IV (13:20)
[2024-11-22 11:52] LABS: % Basophils 0.4 % (0-2); % Eosinophils 1.8 % (0-6); % Immature Granulocytes 0.7 % (0-0.5); % Lymphocytes 39.6 % (20.5-51.1); % Monocytes 7.9 % (1.7-9.3); % Neutrophils 49.6 % (42.2-75.2); Absolute Eosinophils 0.1 10^3/uL (0-0.7); Absolute Lymphocytes 1.1 10^3/uL (1.2-3.4); Absolute Monocytes 0.2 10^3/uL (0.1-0.6); Absolute Neutrophils 1.4 10^3/uL (1.4-6.5); Hematocrit 30.9 % (37.0-47.0); Hemoglobin 9.8 g/dL (12.0-16.0); Mean Corp Hgb Conc. 31.7 g/dL (33.0-37.0); Mean Corpuscular Hgb 31.1 pg (27.0-31.0); Mean Corpuscular Volume 98.1 fL (81.0-99.0); Mean Platelet Volume 9.6 fL (7.4-10.4); Platelet Count 235 10^3/uL (130-400); Red Blood Cell Count 3.15 10^6/uL (4.20-5.40); Red Cell Dist. Width 14.9 % (11.5-14.5); White Blood Cell Count 2.8 10^3/uL (4.8-10.8)
[2024-12-06 11:13] LABS: % Basophils 0.3 % (0-2); % Eosinophils 1.6 % (0-6); % Immature Granulocytes 0.3 % (0-0.5); % Lymphocytes 30.7 % (20.5-51.1); % Monocytes 7.2 % (1.7-9.3); % Neutrophils 59.9 % (42.2-75.2); Absolute Eosinophils 0.1 10^3/uL (0-0.7); Absolute Lymphocytes 1.2 10^3/uL (1.2-3.4); Absolute Monocytes 0.3 10^3/uL (0.1-0.6); Absolute Neutrophils 2.3 10^3/uL (1.4-6.5); Hematocrit 36.1 % (37.0-47.0); Hemoglobin 11.7 g/dL (12.0-16.0); Mean Corp Hgb Conc. 32.4 g/dL (33.0-37.0); Mean Corpuscular Hgb 30.1 pg (27.0-31.0); Mean Corpuscular Volume 92.8 fL (81.0-99.0); Mean Platelet Volume 9.9 fL (7.4-10.4); Platelet Count 200 10^3/uL (130-400); Red Blood Cell Count 3.89 10^6/uL (4.20-5.40); Red Cell Dist. Width 14.7 % (11.5-14.5); White Blood Cell Count 3.8 10^3/uL (4.8-10.8)
[2024-12-06 11:15] VITALS: BP 102/72
[2024-12-06] MEDS: NSS 1000 IV (11:32)
[2024-12-06 11:49] LABS: C-Reactive Protein < 5.00 mg/L (0.0-10.00)
[2024-12-06 12:00] VITALS: BP 105/66
[2024-12-06 12:52] LABS: Folate 5.7 ng/ml (2.76-20); Vitamin B12 568 pg/ml (239-931)
[2024-12-06 13:25] VITALS: BP 114/76
[2024-12-06 13:30] VITALS: BP 98/70
[2024-12-06 13:55] VITALS: BP 107/74
[2024-12-06 15:42] LABS: Nucleated Red Blood Cells % 0 %
[2024-12-06 16:21] LABS: Erythrocyte Sed Rate 7 mm/hour (0-20)
[2024-12-09 22:22] LABS: Copper, Serum 148.5 ug/dL (80.0-155.0)
[2024-12-10 00:05] LABS: SSA 52 (Ro)(ENA) Ab, IgG 2 AU/mL (0-40); SSA 60 (Ro)(ENA) Ab, IgG 0 AU/mL (0-40); SSB (La)(ENA) Ab, IgG 0 AU/mL (0-40)
[2024-12-10 02:50] LABS: Aldolase 6.2 U/L (1.2-7.6); Angiotensin-1-converting Enzym 19 U/L (16-85)
[2024-12-10 22:31] LABS: Alpha-Tocopherol 5.8 mg/L (5.5-18.0)
[2024-12-11 05:30] LABS: Vitamin B6 Results 28.9 nmol/L (20.0-125.0)
[2024-12-11 12:12] LABS: IgA 113 mg/dL (68-408); IgG 537 mg/dL (768-1632); IgM 150 mg/dL (35-263)
[2024-12-11 12:15] LABS: Albumin 3.55 g/dL (3.75-5.01); Alpha 1 Globulin 0.37 g/dL (0.19-0.46); Alpha 2 Globulin 0.73 g/dL (0.48-1.05); SPEP IFE Reflex IFE Done; Total Protein-Electrophoresis 5.9 g/dL (6.3-8.2)
== END 2024-12-06 23:59 | disposition home or self-care (01) ==
LOC: OID 10:42
PROVIDERS: Psychiatry & Neurology Neurology; ATTENDING PHYSICIAN Internal Medicine Hematology & Oncology; OTHER PHYSICIAN Student in an Organized Health Care Education/Training Program
DX: D45 Polycythemia vera (principal); E83.10 Disorder of iron metabolism, unspecified; E83.110 Hereditary hemochromatosis
CPT/HCPCS: 36415; 82085; 82164; 82525; 82565; 82607; 82728; 82746; 82784; 84155; 84165; 84207; 84446; 85025; 85652; 86140; 86235; 86334; 96360; 96361; 99195

== ENCOUNTER 2024-12-27 10:44 | Outpatient (RCR) | payer MEDICARE, OTHER, SELFPAY ==
[2024-12-13 09:29] LABS: % Basophils 0.3 % (0-2); % Eosinophils 3.6 % (0-6); % Immature Granulocytes 0.3 % (0-0.5); % Lymphocytes 52.2 % (20.5-51.1); % Monocytes 6.4 % (1.7-9.3); % Neutrophils 37.2 % (42.2-75.2); Absolute Eosinophils 0.1 10^3/uL (0-0.7); Absolute Lymphocytes 1.9 10^3/uL (1.2-3.4); Absolute Monocytes 0.2 10^3/uL (0.1-0.6); Absolute Neutrophils 1.3 10^3/uL (1.4-6.5); Hematocrit 37.1 % (37.0-47.0); Hemoglobin 12.1 g/dL (12.0-16.0); Mean Corp Hgb Conc. 32.6 g/dL (33.0-37.0); Mean Corpuscular Hgb 29.7 pg (27.0-31.0); Mean Corpuscular Volume 91.2 fL (81.0-99.0); Mean Platelet Volume 9.8 fL (7.4-10.4); Platelet Count 210 10^3/uL (130-400); Red Blood Cell Count 4.07 10^6/uL (4.20-5.40); Red Cell Dist. Width 15.1 % (11.5-14.5); White Blood Cell Count 3.6 10^3/uL (4.8-10.8)
[2024-12-13 09:39] VITALS: BP 113/81
[2024-12-13] MEDS: NSS 1000 IV (10:08)
[2024-12-13 11:28] LABS: Iron 44 ug/dl (37-170)
[2024-12-13 11:39] LABS: Percent Saturation 11 % (20-50); Total Iron Binding Capacity 378 ug/dl (265-497)
--- NOTE | 2024-12-13 13:07 | PTCARENOTE ---
Pt here today for therapeutic Phlebotomy via Tube draw as patient is difficult to obtain IV access. Pt stated she 'did not have enough time to drink extra fluids this morning.Three IV access placed with positive blood return, each flushed easily but
unable to withdraw more then 11 tubes of blood. Pt was hydrated as ordered with 1000ml NSS to maintain adequate Blood pressure. Pt rescheduled for one week. Encouraged patient to increase PO fluids 24 hours prior to next appointment. Pt discharged
in good condition.
[2024-12-20 11:10] LABS: % Basophils 0.4 % (0-2); % Eosinophils 2.6 % (0-6); % Immature Granulocytes 0.2 % (0-0.5); % Lymphocytes 24.9 % (20.5-51.1); % Monocytes 7.5 % (1.7-9.3); % Neutrophils 64.4 % (42.2-75.2); Absolute Eosinophils 0.1 10^3/uL (0-0.7); Absolute Lymphocytes 1.1 10^3/uL (1.2-3.4); Absolute Monocytes 0.3 10^3/uL (0.1-0.6); Absolute Neutrophils 2.9 10^3/uL (1.4-6.5); Hemoglobin 11.9 g/dL (12.0-16.0); Mean Corp Hgb Conc. 32.2 g/dL (33.0-37.0); Mean Platelet Volume 10.3 fL (7.4-10.4); Platelet Count 187 10^3/uL (130-400); Red Blood Cell Count 4.11 10^6/uL (4.20-5.40); White Blood Cell Count 4.5 10^3/uL (4.8-10.8)
[2024-12-20 11:17] VITALS: BP 123/80
[2024-12-20] MEDS: NSS 1000 IV (11:26)
[2024-12-20 13:20] VITALS: BP 109/72
[2024-12-20 13:25] VITALS: BP 101/71
[2024-12-20 13:35] VITALS: BP 98/70
[2024-12-27 11:09] LABS: % Basophils 0.3 % (0-2); % Eosinophils 5.1 % (0-6); % Immature Granulocytes 0.3 % (0-0.5); % Lymphocytes 39.4 % (20.5-51.1); % Monocytes 6.8 % (1.7-9.3); % Neutrophils 48.1 % (42.2-75.2); Absolute Eosinophils 0.2 10^3/uL (0-0.7); Absolute Lymphocytes 1.2 10^3/uL (1.2-3.4); Absolute Monocytes 0.2 10^3/uL (0.1-0.6); Absolute Neutrophils 1.4 10^3/uL (1.4-6.5); Hematocrit 37.4 % (37.0-47.0); Mean Corp Hgb Conc. 32.1 g/dL (33.0-37.0); Mean Corpuscular Hgb 28.9 pg (27.0-31.0); Mean Corpuscular Volume 90.1 fL (81.0-99.0); Mean Platelet Volume 9.4 fL (7.4-10.4); Platelet Count 237 10^3/uL (130-400); Red Blood Cell Count 4.15 10^6/uL (4.20-5.40); Red Cell Dist. Width 15.4 % (11.5-14.5); White Blood Cell Count 2.9 10^3/uL (4.8-10.8)
[2024-12-27 11:32] VITALS: BP 120/86
[2024-12-27] MEDS: NSS 1000 IV (11:40)
[2024-12-27 13:38] LABS: Ferritin 56.4 ng/ml (11.1-264.0)
[2024-12-27 13:45] VITALS: BP 116/72
[2024-12-27 13:50] VITALS: BP 119/73
== END 2025-01-03 23:59 | disposition home or self-care (01) ==
LOC: OID 10:44
PROVIDERS: ATTENDING PHYSICIAN Internal Medicine Hematology & Oncology; OTHER PHYSICIAN Student in an Organized Health Care Education/Training Program
DX: D45 Polycythemia vera (principal); E83.10 Disorder of iron metabolism, unspecified; E83.110 Hereditary hemochromatosis; F17.200 Nicotine dependence, unspecified, uncomplicated
CPT/HCPCS: 36415; 82728; 83540; 83550; 85025; 96360; 96361; 99195

== ENCOUNTER → 2025-02-24 14:14 | Outpatient (REF) | payer MEDICARE, OTHER, SELFPAY ==
[2025-02-24 14:55] LABS: % Basophils 0.7 % (0-2); % Eosinophils 1.7 % (0-6); % Immature Granulocytes 0.2 % (0-0.5); % Lymphocytes 24.2 % (20.5-51.1); % Monocytes 5.7 % (1.7-9.3); % Neutrophils 67.5 % (42.2-75.2); Absolute Basophils 0.1 10^3/uL (0-0.2); Absolute Eosinophils 0.1 10^3/uL (0-0.7); Absolute Monocytes 0.5 10^3/uL (0.1-0.6); Absolute Neutrophils 5.7 10^3/uL (1.4-6.5); Hematocrit 46.4 % (37.0-47.0); Hemoglobin 14.8 g/dL (12.0-16.0); Mean Corp Hgb Conc. 31.9 g/dL (33.0-37.0); Mean Corpuscular Hgb 28.4 pg (27.0-31.0); Mean Corpuscular Volume 88.9 fL (81.0-99.0); Mean Platelet Volume 10.4 fL (7.4-10.4); Nucleated Red Blood Cells % 0 %; Platelet Count 257 10^3/uL (130-400); Red Blood Cell Count 5.22 10^6/uL (4.20-5.40); White Blood Cell Count 8.4 10^3/uL (4.8-10.8)
[2025-02-24 15:53] LABS: Ferritin 20.5 ng/ml (11.1-264.0)
== END ==
LOC: REG 14:14
PROVIDERS: ATTENDING PHYSICIAN Nurse Practitioner
DX: E83.19 Other disorders of iron metabolism (principal)
CPT/HCPCS: 36415; 82728; 85025

== ENCOUNTER → 2025-03-18 09:42 | Outpatient (REF) | payer MEDICARE, OTHER, SELFPAY ==
[2025-03-18 10:38] LABS: % Basophils 0.8 % (0-2); % Eosinophils 4.4 % (0-6); % Immature Granulocytes 0.2 % (0-0.5); % Lymphocytes 30.4 % (20.5-51.1); % Monocytes 7.6 % (1.7-9.3); % Neutrophils 56.6 % (42.2-75.2); Absolute Basophils 0.1 10^3/uL (0-0.2); Absolute Eosinophils 0.3 10^3/uL (0-0.7); Absolute Monocytes 0.5 10^3/uL (0.1-0.6); Absolute Neutrophils 3.6 10^3/uL (1.4-6.5); Hematocrit 41.9 % (37.0-47.0); Hemoglobin 13.9 g/dL (12.0-16.0); Mean Corp Hgb Conc. 33.2 g/dL (33.0-37.0); Mean Corpuscular Hgb 28.7 pg (27.0-31.0); Mean Corpuscular Volume 86.6 fL (81.0-99.0); Mean Platelet Volume 10.4 fL (7.4-10.4); Nucleated Red Blood Cells % 0 %; Platelet Count 189 10^3/uL (130-400); Red Blood Cell Count 4.84 10^6/uL (4.20-5.40); Red Cell Dist. Width 19.7 % (11.5-14.5); White Blood Cell Count 6.4 10^3/uL (4.8-10.8)
[2025-03-18 10:41] LABS: INR 0.93; PT 12.8 Sec (11.4-14.6)
[2025-03-18 10:42] LABS: APTT 27.4 Sec (23.4-35.0)
[2025-03-18 12:56] LABS: ALT (SGPT) 27 U/L (0-35); AST (SGOT) 34 U/L (14-36); Albumin 4.4 g/dl (3.5-5.0); Alkaline Phosphatase 120 U/L (38-126); Blood Urea Nitrogen 12 mg/dl (7-17); Calcium 9.4 mg/dl (8.4-10.2); Carbon Dioxide 21 mmol/L (22-30); Chloride 111 mmol/L (98-107); Glucose 78 mg/dl (70-99); Iron 85 ug/dl (37-170); Potassium 4.1 mmol/L (3.5-5.1); Sodium 138 mmol/L (135-145); Total Bilirubin 0.8 mg/dl (0.2-1.3); Total Protein 6.7 g/dl (6.3-8.2); eGFR > 60.00
[2025-03-18 13:07] LABS: Percent Saturation 20 % (20-50); Total Iron Binding Capacity 413 ug/dl (265-497)
[2025-03-18 15:11] LABS: Ferritin 21.5 ng/ml (11.1-264.0)
[2025-03-19 23:21] LABS: IgA 130 mg/dl (70-400)
[2025-03-20 03:42] LABS: Transferrin 347 mg/dL (200-360)
== END ==
LOC: REG 09:42
PROVIDERS: ATTENDING PHYSICIAN Student in an Organized Health Care Education/Training Program
DX: R79.89 Other specified abnormal findings of blood chemistry (principal); E83.118 Other hemochromatosis
CPT/HCPCS: 36415; 80053; 82728; 82784; 83516; 83540; 83550; 84466; 85025; 85610; 85730

== ENCOUNTER → 2025-05-12 10:06 | Outpatient (REF) | payer MEDICARE, OTHER, SELFPAY ==
[2025-05-12 11:09] LABS: Hematocrit 45.6 % (37.0-47.0); Hemoglobin 15.4 g/dL (12.0-16.0); Mean Corp Hgb Conc. 33.8 g/dL (33.0-37.0); Mean Corpuscular Volume 98.5 fL (81.0-99.0); Nucleated Red Blood Cells % 0 %; Platelet Count 221 10^3/uL (130-400); Red Cell Dist. Width 20.0 % (11.5-14.5)
[2025-05-12 13:50] LABS: ALT (SGPT) 32 U/L (0-35); AST (SGOT) 43 U/L (14-36); Albumin 4.5 g/dl (3.5-5.0); Alkaline Phosphatase 109 U/L (38-126); Blood Urea Nitrogen 5 mg/dl (7-17); Calcium 9.9 mg/dl (8.4-10.2); Carbon Dioxide 24 mmol/L (22-30); Chloride 108 mmol/L (98-107); Glucose 86 mg/dl (70-99); Iron 112 ug/dl (37-170); Potassium 5.1 mmol/L (3.5-5.1); Sodium 140 mmol/L (135-145); Total Protein 6.9 g/dl (6.3-8.2); eGFR > 60.00
[2025-05-12 14:01] LABS: Total Iron Binding Capacity 346 ug/dl (265-497)
[2025-05-12 14:27] LABS: Ferritin 35.4 ng/ml (11.1-264.0)
== END ==
LOC: REG 10:06
PROVIDERS: ATTENDING PHYSICIAN Internal Medicine Hematology & Oncology; FAMILY PHYSICIAN Hospitalist
DX: D45 Polycythemia vera (principal); E83.10 Disorder of iron metabolism, unspecified; E83.110 Hereditary hemochromatosis; N20.1 Calculus of ureter
CPT/HCPCS: 36415; 80053; 82728; 83540; 83550; 85025

== ENCOUNTER → 2025-06-18 14:34 | Outpatient (REF) | payer MEDICARE, OTHER, SELFPAY ==
[2025-06-18 16:31] LABS: Hematocrit 44.1 % (37.0-47.0); Hemoglobin 15.1 g/dL (12.0-16.0); Mean Corp Hgb Conc. 34.2 g/dL (33.0-37.0); Mean Corpuscular Volume 101.8 fL (81.0-99.0); Nucleated Red Blood Cells % 0 %; Red Cell Dist. Width 14.8 % (11.5-14.5)
[2025-06-18 16:54] LABS: ALT (SGPT) 25 U/L (0-35); AST (SGOT) 37 U/L (14-36); Albumin 4.4 g/dl (3.5-5.0); Alkaline Phosphatase 92 U/L (38-126); Blood Urea Nitrogen 11 mg/dl (7-17); Calcium 9.9 mg/dl (8.4-10.2); Carbon Dioxide 23 mmol/L (22-30); Chloride 108 mmol/L (98-107); Glucose 160 mg/dl (70-99); Iron 187 ug/dl (37-170); Platelet Count 188 10^3/uL (130-400); Potassium 4.1 mmol/L (3.5-5.1); Sodium 138 mmol/L (135-145); Total Protein 6.8 g/dl (6.3-8.2); eGFR > 60.00
[2025-06-18 17:04] LABS: Total Iron Binding Capacity 329 ug/dl (265-497)
[2025-06-18 17:30] LABS: Ferritin 50.0 ng/ml (11.1-264.0)
== END ==
LOC: REG 14:34
PROVIDERS: ATTENDING PHYSICIAN Internal Medicine Hematology & Oncology; FAMILY PHYSICIAN Hospitalist
DX: D45 Polycythemia vera (principal); E83.10 Disorder of iron metabolism, unspecified; E83.110 Hereditary hemochromatosis
CPT/HCPCS: 36415; 80053; 82728; 83540; 83550; 85025